=== PATIENT | male | born 1955 | race African-American/Black ===

== ENCOUNTER 2021-01-08 18:54 | Emergency (ER) | payer BC, OTHER ==
[~2021-01-08] VITALS: Ht 182.9 cm; Wt 93.0 kg
[2021-01-08] MEDS ORDERED: COZAAR 25 MG TA25 M1 PO (20:04)
[2021-01-08] MEDS ORDERED: MELOXICAM15 MG PO (20:05)
[2021-01-08] MEDS ORDERED: ULTRAM 50MG TAB50 MG PO (20:05)
[2021-01-08 21:14] VITALS: BP 171/97
== END 2021-01-08 21:15 | disposition home or self-care (01) ==
LOC: ER 18:54
PROVIDERS: Emergency Medicine
DX: B34.9 Viral infection, unspecified (principal); Z20.822 Contact with and (suspected) exposure to COVID-19; E11.9 Type 2 diabetes mellitus without complications; I10 Essential (primary) hypertension; E78.00 Pure hypercholesterolemia, unspecified; M19.90 Unspecified osteoarthritis, unspecified site; Z79.899 Other long term (current) drug therapy